=== PATIENT | male | born 1985 | race Caucasian/White ===

== ENCOUNTER 2017-05-15 10:37 | Emergency (ER) | payer OTHER ==
[~2017-05-15] VITALS: Ht 172.7 cm; Wt 105.9 kg
[2017-05-15 10:41] VITALS: BP 135/89
--- NOTE | 2017-05-15 15:47 | NUR ---
PT TAKEN TO BED 5
--- NOTE | 2017-05-15 16:00 | NUR ---
PATIENT PRESENTS TO ED WITH C/O CHEST PAIN SINCE THIS MORNING. DENIES MEDICAL HISTORY.PT STATES HE FEELS NAUSEOUS THIS MORNING BUT DENIES VOMITTING;; SKIN IS PINK/WARM/DRY; AAOX4 WITH EVEN AND STEADY GAIT; LUNGS CLEAR BL; HR EVEN AND REGULAR; PT DENIES ANY FEVER OR COUGH AT THIS TIME; PATIENT STATES PAIN OF 4/10 AT THIS TIME; VSS; PATIENT POSITIONED FOR COMFORT; HOB ELEVATED; BEDRAILS UP X2; BED DOWN. ALL MONITORS IN PLACED;
--- NOTE | 2017-05-15 16:36 | NUR ---
XARY AT BEDSIDE.
--- NOTE | 2017-05-15 17:06 | NUR ---
PT RESTING ON BED;SERGEY CUTE DISTRESS NOTED;ALL MONITORS IN PLACED;FAMILY AT BEDSIDE;WILL CONTINUE TO MONITOR PT.
[2017-05-15 17:29] LABS: BASOPHILS # (AUTO) 0.1 K/uL (0.00-0.22); BASOPHILS % (AUTO) 0.7 % (0.0-2.0); EOSINOPHILS # (AUTO) 1.2 K/uL (0-0.4); EOSINOPHILS % (AUTO) 8.9 % (0.0-4.0); HEMATOCRIT 48.8 % (36-52); LYMPHOCYTES # (AUTO) 2.5 K/uL (2.0-11.5); LYMPHOCYTES % (AUTO) 18.6 % (20.5-51.1); MEAN CORPUSCULAR HEMOGLOBIN 28 pg (27-31); MEAN CORPUSCULAR HGB CONC 33 g/dL (33-37); MEAN CORPUSCULAR VOLUME 85 fL (80-94); MONOCYTES # (AUTO) 0.7 K/uL (0.8-1.0); NEUTROPHILS # (AUTO) 9.1 K/uL (1.8-7.7); NEUTROPHILS % (AUTO) 66.8 % (42.2-75.2); PLATELET COUNT (AUTO) 287 K/uL (140-450); RED BLOOD CELL COUNT(AUTO) 5.74 MIL/uL (4.20-6.10); RED CELL DISTRIBUTION WIDTH 12.7 % (11.6-13.7); WHITE BLOOD COUNT (AUTO) 13.6 K/uL (4.8-10.8)
[2017-05-15 17:31] LABS: ALBUMIN 3.2 g/dL (3.4-5.0); ANION GAP 13.6 (8-16); CALCIUM 8.9 mg/dL (8.5-10.1); CARBON DIOXIDE 28.3 mmol/L (21-32); CREATININE 0.9 mg/dL (0.7-1.3); POTASSIUM 3.9 mmol/L (3.5-5.1); TOTAL BILIRUBIN 0.3 mg/dL (0.0-1.0); TOTAL PROTEIN, SERUM 7.7 g/dL (6.4-8.2)
--- NOTE | 2017-05-15 18:18 | NUR ---
DR MARION AT BEDSIDE.
--- NOTE | 2017-05-15 18:31 | NUR ---
PT RESTING ON BED;NO ACUTE DISTRESS NOTED;ALL MONITORS IN PLACED WILL CONTINUE TO MONITOR PT.
[2017-05-15 19:06] LABS: APPEARANCE,URINE CLEAR (CLEAR); BILIRUBIN,URINE NEGATIVE (NEGATIVE); BLOOD, URINE NEGATIVE (NEGATIVE); COLOR,URINE YELLOW (YELLOW); LEUKOCYTE ESTERASE ,URINE NEGATIVE (NEGATIVE); NITRITE, URINE NEGATIVE (NEGATIVE); PROTEIN,URINE NEGATIVE (NEGATIVE); UGLUCOSE 3+ (NEGATIVE); UROBILINOGEN,URINE 0.2 EU/dL (0.2 - 1)
[2017-05-15 19:10] LABS: BACTERIA,URINE 0-2 (RARE) /HPF (None Seen); RBC,URINE 0-5 (RARE) /HPF (0-5)
--- NOTE | 2017-05-15 19:10 | NUR ---
RECEIVED PT AAO, NO C/O PAIN AT THIS TIME, VITAL SIGN STABLE, SKIN WARM TO TOUCH RESP. EVEN AND UNLABORED, NO DISTRESS NOTED
--- NOTE | 2017-05-15 19:11 | NUR ---
Pt report given to MANDO LEONG. Transfer of care at this time.
[2017-05-15 19:32] VITALS: BP 118/75
--- NOTE | 2017-05-15 19:33 | NUR ---
Patient discharged with v/s stable. Written and verbal after care instructions given and explained. Patient alert, oriented and verbalized understanding of instructions. Ambulatory with steady gait. All questions addressed prior to discharge. ID band removed. Patient advised to follow up with PMD. Rx of ATIVAN given. Patient educated on indication of medication including possible reaction and side effects. Opportunity to ask questions provided and answered.EXCUSED FOR WORK GIVEN, ENCOURAGED PT TO AVOID DRINKING SODA AND PT AGREED WITH IT.
== END 2017-05-15 19:32 | disposition home or self-care (01) ==
LOC: MED 10:37
DX: R07.89 Other chest pain (principal); R73.9 Hyperglycemia, unspecified; F43.9 Reaction to severe stress, unspecified
CPT/HCPCS: 36415; 71010; 80053; 81001; 84484; 85025; 85379; 93005; 99285